=== PATIENT | female | born 1965 | race Caucasian/White ===

== ENCOUNTER 2017-03-09 13:24 | Outpatient (CLI) | payer OTHER | END 2017-03-09 13:25 | disposition home or self-care (01) | DX: Z13.1 Encounter for screening for diabetes mellitus (principal); Z13.9 Encounter for screening, unspecified; Z13.220 Encounter for screening for lipoid disorders; R59.0 Localized enlarged lymph nodes ==

== ENCOUNTER 2017-08-07 11:14 | Observation (INO) | payer OTHER ==
[~2017-08-07 11:14] MED LIST: ACETAMINOPHEN 1,000 MG/100 ML 100 ML IV ONE; DEXAMETHASONE 4 MG/ML VIAL IVP ONE; KETOROLAC 30 MG/ML VIAL IVP ONE; LIDOCAINE-MPF 2% 5 ML VIAL IM ONE; METOCLOPRAMIDE 10 MG/2 ML VIAL IVP ONE; MIDAZOLAM 2 MG/2 ML VIAL IVP ONE; ONDANSETRON 4 MG/2 ML VIAL IVP ONE; PROPOFOL 200 MG/20 ML VIAL IVP ONE; fentaNYL 100 MCG/2 ML VIAL IVP ONE
[2017-08-07] MEDS ORDERED: ONDANSETRON 4 MG/2 ML VIAL IVP STA (12:01)
[2017-08-07] MEDS ORDERED: HYDROmorphone 1 MG/ML CARPUJECT IVP STA ×2 (12:01→13:10)
[2017-08-07 12:04] LABS: BASOPHILS # (AUTO) 0.1 10^3/uL (0.0-0.1); BASOPHILS % (AUTO) 0.6 %; EOSINOPHILS # (AUTO) 0.1 10^3/uL (0.0-0.7); EOSINOPHILS % (AUTO) 0.5 %; LYMPHOCYTES % (AUTO) 10.3 %; MEAN CORPUSCULAR HEMOGLOBIN 29.8 pg (27.0-31.0); MEAN CORPUSCULAR HGB CONC 34.1 g/dL (32.0-36.0); MEAN CORPUSCULAR VOLUME 87.5 fL (81.0-99.0); MEAN PLATELET VOLUME 7.2 fL (7.9-10.8); MONOCYTES # (AUTO) 0.2 10^3/uL (0.0-1.0); MONOCYTES % (AUTO) 2.5 %; NEUTROPHILS # (AUTO) 8.3 10^3/uL (1.5-6.6); NEUTROPHILS % (AUTO) 86.1 %; RED BLOOD COUNT 4.68 10^6/uL (4.20-5.40); RED CELL DISTRIBUTION WIDTH 13.2 % (12.0-15.0); UNCORRECTED WHITE BLOOD COUNT 9.6 x10^3/uL; WHITE BLOOD COUNT 9.6 x10^3/uL (4.8-10.8)
[2017-08-07 12:05] LABS: BILIRUBIN,URINE NEGATIVE (NEGATIVE); PH,URINE 7.5 PH (5.0-7.5)
[2017-08-07 12:08] LABS: HCG UR QUAL NEGATIVE; UA w/ MICROSCOPIC CHARGE YES
[2017-08-07] MEDS ORDERED: SODIUM CHLORIDE FLUSH 0.9% 10 ML SYRINGE IVP ONE (12:09)
[2017-08-07] MEDS ORDERED: HYDROmorphone 1 MG/ML CARPUJECT ONE (12:09)
[2017-08-07] MEDS ORDERED: ONDANSETRON 4 MG/2 ML VIAL ONE (12:09)
[2017-08-07 12:16] LABS: UR CULTURE IF IND NOT INDICATED; WBC,URINE 0-3 /HPF (0-5)
[2017-08-07 12:18] LABS: ALBUMIN/GLOBULIN RATIO 1.2 (1.0-2.2); BILIRUBIN,TOTAL 0.5 mg/dL (0.2-1.0); CALCIUM 8.9 mg/dL (8.5-10.3); CREATININE 0.7 mg/dL (0.4-1.0); POTASSIUM 3.1 mmol/L (3.5-5.0)
[2017-08-07] MEDS ORDERED: HYDROmorphone 1 MG/ML SYRINGE ONE (13:16)
--- NOTE | 2017-08-07 13:20 | CT Preliminary Report ---
Exam: CT Abdomen/Pelvis W/O IMPRESSION: 1. Abnormal gallbladder consistent with cholecystitis and cholelithiasis. Correlate clinically. 2. Right renal lithiasis. No obstructive uropathy. 3. Normal appendix. [facility] SITE ID: [id number]
--- NOTE | 2017-08-07 13:33 | CT Report ---
EXAM: CT ABDOMEN AND PELVIS EXAM DATE: 08/07/2017 12:48 PM. CLINICAL HISTORY: Right-sided abdominal pain. Hematuria. COMPARISONS: None. TECHNIQUE: Routine helical CT imaging was performed through the abdomen and pelvis. IV contrast: None . Enteric contrast: No. Reconstructions: Coronal and sagittal. In accordance with CT protocol optimization, one or more of the following dose reduction techniques w ere utilized for this exam: automated exposure control, adjustment of mA and/or KV based on patient s ize, or use of iterative reconstructive technique. FINDINGS: Lung Bases: Prior right breast surgery. Mild cardiomegaly. Liver: Normal. No masses. Gallbladder/Bile Ducts: 12 mm gallbladder wall thickening. Overall caliber of the gallbladder itself is normal. 1.5 cm stone at the gallbladder neck. Additional stones in the rest of the gallbladder. No biliary duct dilatation. Several small densely calcified stones or limited calcification of the gall bladder wall at the fundus. Spleen: Normal. Pancreas: Normal. Adrenal Glands: Normal. Kidneys: Normal left kidney and left ureter. 3 mm stone in the inferior right renal calyx. No right hydronephrosis. Normal right ureter. Peritoneal Cavity/Bowel: Normal. No free fluid, free air or adenopathy. No masses or acute inflammato ry process. The appendix is well visualized and normal. Pelvic Organs: Normal. The bladder and visualized pelvic organs are within normal limits. Vasculature: No aneurysms or other significant abnormality. Bones: No significant abnormality. Other: None. IMPRESSION: 1. Abnormal gallbladder consistent with cholecystitis and cholelithiasis. Correlate clinically. 2. Right renal lithiasis. No obstructive uropathy. 3. Normal appendix. 4. Mild cardiomegaly. [facility] Referring Provider Line: [phone] SITE ID: [id number]
--- NOTE | 2017-08-07 14:05 | ED Physician Documentation ---
PD HPI ABD PAIN - Stated complaint Stated Complaint: ABD PX - Chief complaint Chief Complaint: Abd Pain - History obtained from History obtained from: Patient - History of Present Illness Timing - onset: How many hours ago (7) Timing - details: Still present Quality: Pain Location: Other (Right sided) Worsened by: Palpation Associated symptoms: Nausea, Vomiting. No: Fever Similar symptoms before: Has not had sx before - Additional information Additional information: The patient is a 51-year-old female who presents with right upper quadrant abdominal pain that started at 5:00 this morning, about 7 hours prior to arrival. It was sudden in onset, and has persisted since onset. She has had associated nausea with vomiting 4. She denies fever, diarrhea, cough, chest pain, or shortness of breath. She denies history of similar symptoms in the past. Her last menstrual period was 4 weeks ago and was normal. She was initially seen in her primary physician's office, and was sent here for further workup. Review of Systems Constitutional: denies: Fever Nose: denies: Congestion Throat: denies: Sore throat Cardiac: denies: Chest pain / pressure Respiratory: denies: Dyspnea, Cough GI: reports: Abdominal Pain, Nausea, Vomiting. denies: Diarrhea : reports: LMP (4 weeks ago.). denies: Dysuria Skin: denies: Rash Musculoskeletal: denies: Back pain Neurologic: denies: Syncope, Headache PD PAST MEDICAL HISTORY - Past Medical History Cardiovascular: None Respiratory: None Neuro: None Endocrine/Autoimmune: None GI: None - Past Surgical History Past Surgical History: No - Present Medications Home Medications: Ambulatory Orders Medication Instructions Recorded Confirmed Calcium Carbonate/Vitamin D3 1 each PO DAILY 10/18/13 08/07/17 [Calcium 500 + D Tablet] Tamoxifen Citrate 20 mg PO DAILY 09/05/14 08/07/17 - Allergies Allergies/Adverse Reactions: Allergies Allergy/AdvReac Type Severity Reaction Status Date / Time No Known Drug Allergies Allergy Verified 08/07/17 11:28 - Social History Does the pt smoke?: No PD ED PE NORMAL - Vitals Vital signs reviewed: Yes (Hypertensive) - General General: Alert and oriented X 3, Well developed/nourished - HEENT HEENT: Atraumatic, Pharynx benign - Neck Neck: Supple, no meningeal sign, No adenopathy, No JVD - Cardiac Cardiac: RRR, No murmur - Respiratory Respiratory: No respiratory distress, Clear bilaterally - Abdomen Abdomen: Normal bowel sounds, Soft, Other (Tender to palpation along the entire right abdomen, more in the right upper quadrant than elsewhere. No rebound tenderness.) - Back Back: No CVA TTP - Derm Derm: No rash - Extremities Extremities: No edema, No calf tenderness / cord - Neuro Neuro: Alert and oriented X 3, No motor deficit, Normal speech Results - Vitals Vitals: Vital Signs - 24 hr 08/07/17 08/07/17 11:22 14:20 Temperature 36.7 C Heart Rate 71 69 Respiratory 17 16 Rate Blood Pressure 254/111 H 188/95 H O2 Saturation 100 100 Oxygen O2 Source Room air - Labs Labs: Laboratory Tests 08/07/17 08/07/17 08/07/17 11:50 11:50 11:50 WBC 9.6 RBC 4.68 Hgb 14.0 Hct 41.0 MCV 87.5 MCH 29.8 MCHC 34.1 RDW 13.2 Plt Count 261 MPV 7.2 L Neut # 8.3 H Lymph # 1.0 L [place] # 0.2 Eos # 0.1 Baso # 0.1 Absolute Nucleated RBC 0.00 Nucleated RBC % 0.0 Sodium 138 Potassium 3.1 L Chloride 102 Carbon Dioxide 27 Anion Gap 9.0 BUN 8 Creatinine 0.7 Estimated GFR (MDRD) 88 L Glucose 113 H Calcium 8.9 Total Bilirubin 0.5 AST 24 ALT 20 Alkaline Phosphatase 57 Total Protein 8.0 Albumin 4.4 Globulin 3.6 Albumin/Globulin Ratio 1.2 Lipase 40 Urine Color YELLOW Urine Clarity CLEAR Urine pH 7.5 Ur Specific [place] 1.020 Urine Protein 30 H Urine Glucose (UA) NEGATIVE Urine Ketones NEGATIVE Urine Occult Blood MODERATE H Urine Nitrite NEGATIVE Urine Bilirubin NEGATIVE Urine Urobilinogen 0.2 (NORMAL) Ur Leukocyte Esterase NEGATIVE Urine RBC 11-25 H Urine WBC 0-3 Ur Squamous Epith Cells FEW Squamous Urine Bacteria Rare Ur Microscopic Review INDICATED Urine Culture Comments NOT INDICATED Urine HCG, Qual 08/07/17 11:50 WBC RBC Hgb Hct MCV MCH MCHC RDW Plt Count MPV Neut # Lymph # [place] # Eos # Baso # Absolute Nucleated RBC Nucleated RBC % Sodium Potassium Chloride Carbon Dioxide Anion Gap BUN Creatinine Estimated GFR (MDRD) Glucose Calcium Total Bilirubin AST ALT Alkaline Phosphatase Total Protein Albumin Globulin Albumin/Globulin Ratio Lipase Urine Color Urine Clarity Urine pH Ur Specific [place] 1.020 Urine Protein Urine Glucose (UA) Urine Ketones Urine Occult Blood Urine Nitrite Urine Bilirubin Urine Urobilinogen Ur Leukocyte Esterase Urine RBC Urine WBC Ur Squamous Epith Cells Urine Bacteria Ur Microscopic Review Urine Culture Comments Urine HCG, Qual NEGATIVE - Rads (name of study) CT abd/pelvis w/o Radiology: Prelim report reviewed, EMP read contemporaneously, See rad report ( 1. Abnormal gallbladder, consistent with cholecystitis and cholelithiasis. Correlate clinically. 2. Right renal lithiasis. No obstructive uropathy. 3. Normal appendix.) PD MEDICAL DECISION MAKING - ED course Complexity details: reviewed results, re-evaluated patient, considered differential, d/w patient, d/w personnel consultant ED course: The patient's presentation is most consistent with acute cholecystitis, with cholelithiasis. Her white blood cell count is normal, as are her liver enzymes. Her potassium is slightly hypokalemic at 3.1. Treatment in the emergency department included administration of normal saline IV, Dilaudid 1 mg IV, Zofran 4 mg IV, and potassium supplement 20 mEq IV. I discussed her condition with Dr. Hernandez who evaluated her in the emergency department and admitted her for operative intervention. Departure - Departure Disposition: ED Place in Observation Clinical Impression: Cholecystitis, Hypokalemia Condition: Stable Discharge Date/Time: 08/07/17 16:06
[2017-08-07] MEDS ORDERED: POTASSIUM CHLORIDE 20 MEQ TABLET PO STA (14:06)
[2017-08-07] MEDS ORDERED: POTASSIUM CHLOR 20 MEQ/100 ML 20 MEQ/100 ML BAG IV ONE (14:21)
[2017-08-07] MEDS ORDERED: SODIUM CHLORIDE 0.9% 1,000 ML IV ONE (14:21)
[2017-08-07] MEDS ORDERED: POTASSIUM CHLOR 10 MEQ/100 ML 10 MEQ/100 ML BAG IV ONE (14:45)
[2017-08-07] MEDS ORDERED: SODIUM CHLORIDE FLUSH 0.9% 10 ML SYRINGE IVP PRN (14:47)
[2017-08-07] MEDS ORDERED: HYDROmorphone 1 MG/ML AMP IVP PRN (14:51)
[2017-08-07] MEDS: ONDANSETRON 4 MG/2 ML VIAL IVP PRN ×2 (16:07→21:16)
[2017-08-07] MEDS: cefOXitin 1 GM in SODIUM CHLORIDE 0.9% MINIBAG 100 ML IV SCH ×2 (16:09→21:08)
[2017-08-07] MEDS: HYDROmorphone 1 MG/ML AMP IVP PRN ×3 (16:09→22:25)
[2017-08-07] MEDS: NS W/20 MEQ KCL 1,000 ML IV SCH (16:10)
[2017-08-07] MEDS: SODIUM CHLORIDE FLUSH 0.9% 10 ML SYRINGE IVP SCH (21:26)
[2017-08-07] MEDS: ENALAPRILAT 1.25 MG/ML VIAL IVP PRN (23:52)
[2017-08-08] MEDS: HYDROmorphone 1 MG/ML AMP IVP PRN ×2 (00:45→04:08)
[2017-08-08] MEDS: NS W/20 MEQ KCL 1,000 ML IV SCH ×2 (03:00→11:42)
[2017-08-08] MEDS: cefOXitin 1 GM in SODIUM CHLORIDE 0.9% MINIBAG 100 ML IV SCH ×4 (04:10→21:30)
[2017-08-08] MEDS: SODIUM CHLORIDE FLUSH 0.9% 10 ML SYRINGE IVP SCH ×3 (04:15→20:20)
[2017-08-08] MEDS ORDERED: BUPIVACAINE 0.5%-EPI 1:200000 PF 30 ML VIAL SUBQ ONE (08:21)
[2017-08-08] MEDS ORDERED: LACTATED RINGERS 1,000 ML IV ONE ×2 (08:23→10:45)
[2017-08-08] MEDS ORDERED: IOTHALAMATE MEGLUMINE 50 ML VIAL INTRADUCT ONE (09:24)
--- NOTE | 2017-08-08 09:50 | XRAY Preliminary Report ---
Exam: [place] OR Cholangiogram IMPRESSION: A catheter has been placed into the cystic duct remnant following cholecystectomy. Cholan giography shows opacification of the bile ducts. Visualized ducts show no filling defects. Spill of c ontrast into the duodenum documented. [facility] SITE ID: [id number]
--- NOTE | 2017-08-08 09:52 | XRAY Report ---
EXAM: INTRAOPERATIVE CHOLANGIOGRAM EXAM DATE: 08/08/2017 09:25 AM. CLINICAL HISTORY: LAP BENNY. COMPARISONS: Correlation made with abdomen and pelvis CT of 08/07/2017. TECHNIQUE: Dr. Ruddy Hernandez performed the procedure. Please see the operative notes for details. Fluoroscopy Time: 19 seconds. Number of Images: 2. FINDINGS/IMPRESSION: A catheter has been placed into the cystic duct remnant following cholecystectom y. Cholangiography shows opacification of the bile ducts. Visualized ducts show no filling defects. S pill of contrast into the duodenum documented. [facility] Referring Provider Line: [phone] SITE ID: [id number]
[2017-08-08] MEDS ORDERED: HYDROcod/ACETAM 5/325 MG TABLET PO PRN (10:08)
[2017-08-08] MEDS ORDERED: MORPHINE 2 MG/ML SYRINGE IVP PRN ×3 (10:08→10:09)
--- NOTE | 2017-08-08 10:13 | HISTORY & PHYSICAL EXAMINATION ---
DATE OF ADMISSION: 08/07/2017 REASON FOR ADMISSION: Acute abdominal pain. HISTORY OF PRESENT ILLNESS: The patient is a 51-year-old female who had sudden right upper quadrant a bdominal pain starting earlier on the day of admission. The pain persisted and did not resolve. Becau se of this, she came to the emergency room. She has had nausea with emesis. She denies any diarrhea, constipation, peptic ulcer disease, jaundice, or acholic stools. PAST SURGICAL HISTORY: Breast cancer, undergoing a mastectomy. MEDICATIONS: Tamoxifen. ALLERGIES TO MEDICATIONS: NONE. FAMILY HISTORY: Noncontributory. SOCIAL HISTORY: The patient is single. HABITS: The patient denies any significant smoking, alcohol, or drug use. REVIEW OF SYSTEMS: A complete review of systems was obtained. Pertinent positives are CONSTITUTIONAL: Not feeling well. GASTROINTESTINAL: Abdominal pain, nausea, and vomiting. A 12-point review of systems obtained with pertinent positives discussed and all others being negativ e. PHYSICAL EXAMINATION VITAL SIGNS: Blood pressure 171/84, pulse 67, temperature is 36.7. GENERAL: The patient is lying in bed. She is having complaints of abdominal pain in the right upper q uadrant. HEENT: Eyes nonicteric. NECK: No lymphadenopathy. HEART: Regular. LUNGS: Clear. BACK: Nontender. ABDOMEN: Soft, tender in the right upper quadrant. No hernias. EXTREMITIES: No edema or cyanosis. NEUROLOGICAL: The patient appears to be neurologically intact without any deficits. PSYCHOLOGICAL: The patient is coherent, cooperative, and appears to answer questions fully. DIAGNOSTIC DATA: Liver function tests normal, sodium 138, potassium 3.1, BUN 8, creatinine 0.7. White blood cell count 9.6, hemoglobin 14. CT scan of the abdomen and pelvis shows a gallbladder with mult iple gallstones and thickened wall consistent with acute cholecystitis. ASSESSMENT 1. Acute right upper quadrant abdominal pain secondary to acute cholecystitis. I have recommended she undergo a laparoscopic cholecystectomy, possible laparotomy. The risks and possible complications of the procedure have been explained to her. She accepts the risks and wishes to proceed. No guarantees given or implied. 2. History of breast cancer, on tamoxifen. PLAN 1. The patient will be admitted to the hospital. 2. N.p.o. 3. IV fluids. 4. IV antibiotics. 5. Laparoscopic cholecystectomy, possible laparotomy. JOB #: [id number] EXT JOB #:[id number]
[2017-08-08] MEDS: HYDROcod/ACETAM 5/325 MG TABLET PO PRN ×3 (13:29→23:51)
[2017-08-09] MEDS: NS W/20 MEQ KCL 1,000 ML IV SCH (01:12)
[2017-08-09] MEDS: cefOXitin 1 GM in SODIUM CHLORIDE 0.9% MINIBAG 100 ML IV SCH ×2 (04:04→08:35)
[2017-08-09] MEDS: HYDROcod/ACETAM 5/325 MG TABLET PO PRN ×2 (05:25→09:12)
[2017-08-09] MEDS: SODIUM CHLORIDE FLUSH 0.9% 10 ML SYRINGE IVP SCH (07:04)
[2017-08-09] MEDS: ENALAPRILAT 1.25 MG/ML VIAL IVP PRN (08:05)
[2017-08-09 08:24] VITALS: BP 160/82
--- NOTE | 2017-08-09 10:03 | PROVIDER PROGRESS NOTE ---
Subjective - General Admit Date: 08/07/17 - Review of Systems Gastrointestinal: positive: Abdominal pain (at incision sites. No c/o pain that was present before surgery.) Objective - Patient Data Vital Signs: Vital Signs x48h Temp Pulse Pulse Resp BP BP Pulse Ox 08/09/17 08:24 68 160/82 H 08/09/17 08:12 66 162/83 H 08/09/17 07:36 36.9 C 61 16 167/87 H 99 08/09/17 05:00 36.7 C 63 16 154/83 H 98 Weight: Weight 08/07/17 08/08/17 08/09/17 23:59 23:59 23:59 Weight (kg) 85.5 kg Intake & Output: Intake and Output Totals x24h 08/07/17 08/08/17 08/09/17 23:59 23:59 23:59 Intake Total 1300 2890 2384.75 Output Total 350 600 Balance 1300 2540 1784.75 - Lab Results Lab Results: 08/07/17 11:50 08/07/17 11:50 - Current Medications Current Medications: Current Medications Generic Name Dose Route Start Last Admin Trade Name Freq PRN Reason Stop Dose Admin Acetaminophen/Hydrocodone Bitart 2 tab 08/08/17 10:08 08/09/17 09:12 [place] 5/325 PO 2 tab Q4HR PRN Administration PAIN Enalaprilat 1.25 mg 08/07/17 22:05 08/09/17 08:05 Vasotec Inj IVP 1.25 mg Q6HR PRN Administration Blood Pressure Cefoxitin Sodium 1 gm/ Sodium 100 mls @ 200 mls/hr 08/07/17 16:00 08/09/17 08 :35 Chloride IV Not Given Q6H RONALDO Potassium Chloride/Sodium Chloride 1,000 mls @ 75 mls/hr 08/08/17 10:09 08/09 07:05 Normal Saline 0.9% W/20 Meq Kcl IV 75 mls/hr .[id number] RONALDO Infusion Ondansetron HCl 4 mg 08/07/17 14:50 08/07/17 21:16 Zofran Inj IVP 4 mg Q6H PRN Administration Nausea / Vomiting Sodium Chloride 10 ml 08/07/17 22:00 08/09/17 07:04 Normal Saline Flush 0.9% IVP Not Given Q8HR RONALDO Sodium Chloride 10 ml 08/07/17 14:47 08/09/17 08:06 Normal Saline Flush 0.9% IVP 10 ml PRN PRN Administration NEEDED PER PROVIDER ORDERS - Physical Exam Abdomen: positive: Other (incisions clean without wound healing problems.) Impression/Plan - Problem List Problem List: s/p laparoscopic cholecystectomy for acute cholecystitis pod#1. Doing well. Tolerating liquids. Advance diet. d/c home.
--- NOTE | 2017-08-09 10:05 | Discharge Plan ---
Discharge Plan Disposition: 01 Home, Self Care Condition: Good Prescriptions: HYDROcod/ACETAM 5/325 [[place] 5/325] 2 tab PO Q4HR PRN #40 tablet PRN Reason: Pain Diet: Regular Activity Restrictions: no lifting over 15 lbs Shower Restrictions: No Driving Restrictions: Yes (wait at least 3 days and not while on pain medications) Weight Bearing: Full Weight No Smoking: If you smoke, Please STOP! Call for help. Follow-up with: Pilar Winslow PA [Primary Care Provider] - 2 Weeks Ruddy Hernandez MD [Provider Admit Priv/Credential] - 2 Weeks
--- NOTE | 2017-08-09 12:40 | OPERATIVE REPORT ---
DATE OF SURGERY: 08/08/2017 00:00:00 PREOPERATIVE DIAGNOSIS: Acute cholecystitis. POSTOPERATIVE DIAGNOSIS: Acute cholecystitis. NAME OF PROCEDURE: Laparoscopic cholecystectomy with intraoperative cholangiogram. SURGEON: Ruddy Hernandez MD ANESTHESIA: General. INDICATIONS FOR SURGERY: The patient is a 51-year-old female who presents with acute right upper quad rant abdominal pain. She had a CT scan of the abdomen and pelvis, which revealed a gallbladder with t hickened gallbladder wall and gallstones. She clinically also had cholecystitis. She was then admitte d to the hospital to undergo IV hydration, IV antibiotics and then laparoscopic cholecystectomy. FINDINGS AT PROCEDURE: The patient had acutely inflamed gallbladder containing numerous gallstones. S he had a normal intraoperative cholangiogram without any filling defects being present. PROCEDURE: After informed consent was obtained, the patient taken to the operating room and placed in supine position. General endotracheal anesthesia was administered. The patient's abdomen was then pr epped and draped in usual sterile fashion. Prior to making abdominal incisions, the skin was injected with local anesthesia. An infraumbilical incision was made in the skin using a scalpel. A 5 mm Optiv iew trocar was then inserted through this incision, through the fascia and into the abdominal cavity under direct vision. The abdomen was then insufflated. Three 5 mm ports were then placed in the right upper quadrant, and the 5 mm port switched to a 12 mm port under direct vision. The patient's gallbl adder was acutely inflamed and distended. A needle was then inserted in the gallbladder, draining it of its fluid contents. The gallbladder fundus was then grasped and lifted anteriorly and superiorly, exposing the triangle of [place]. The peritoneum was then incised using cautery at this point. Dissecti on proceeded down to the cystic duct, which was identified. Cystic duct gallbladder junction was visu alized. The common bile duct was also visualized with the cystic duct being short and wide. A Shepard c lamp was then placed across the Mehran pouch, and a cholangiogram was then performed. This showed n ormal biliary anatomy without any filling defects being present. The clamp was then removed, and clip s were then placed proximally and distally along the cystic duct with it then being divided. The cyst ic artery was identified, clipped proximally and distally and then being divided. Gallbladder was the n dissected off the gallbladder bed using electrocautery, placed in an Endobag and removed through th e umbilical port. Right upper quadrant was thoroughly irrigated until the return fluid was clear. The ports were then removed, and no bleeding was noted at the port sites with the abdomen then being conchita ufflated. The umbilical fascial defect was closed using #0 Vicryl sutures. The skin incisions were cl osed using 4-0 Monocryl subcuticular stitch. Dermabond was then applied on the incision sites. The pa tient was then awakened, extubated and taken from the operating room in stable condition. ESTIMATED BLOOD LOSS: 10 mL. COMPLICATIONS: None. CONDITION OF THE PATIENT AT END OF PROCEDURE: Stable. SPECIMENS: Gallbladder and gallstones. DRAINS OR PACKS: None. CLASSIFICATION OF WOUND: Clean contaminated. JOB #: [id number] EXT JOB #:[id number]
--- NOTE | 2017-08-09 13:04 | DISCHARGE SUMMARY ---
DATE OF ADMISSION: 08/07/2017 DATE OF DISCHARGE: 08/09/2017 REASON FOR ADMISSION: Acute abdominal pain. HISTORY OF PRESENT ILLNESS: The patient is a 51-year-old female who had sudden right upper quadrant a bdominal pain starting on the day of admission. Because the pain did not resolve, [facility]. She had nausea and vomiting but no diarrhea or constipation. She had an ultrasound of the abdomen, which revealed a distended gallbladder with stones and thickened gallbladd er wall consistent with acute cholecystitis. PRINCIPAL DIAGNOSIS: Acute cholecystitis. OTHER MEDICAL PROBLEMS: History of breast cancer. PROCEDURES: The patient underwent a laparoscopic cholecystectomy with intraoperative cholangiogram on 08/08/2017. HOSPITAL COURSE: The patient was admitted to the hospital and was IV hydrated along with IV antibioti cs being started. Once she was stable, she then underwent the above procedure. She tolerated it well and was transferred to the floor in stable condition. She was started on IV pain medications and swit ched to oral, which she was tolerating at discharge. She was started on a liquid diet, and this was a dvanced to a regular being tolerated at discharge. Her abdominal incisions remained clean without any evidence of infection. She was then discharged home on postoperative day 1 in stable condition. DISCHARGE PROGRAM: The patient will be discharged home. Followup in the surgical clinic in 2 weeks. R egular diet. Ambulate with no lifting over 15 pounds for 2 weeks. She may shower. She is to resume he r prehospitalization medications. In addition, [place] 5/325 one to 2 p.o. q.4-6 hours p.r.n. pain. JOB #: [id number] EXT JOB #:[id number]
== END 2017-08-09 11:24 | disposition home or self-care (01) ==
LOC: ED 11:14 → OBS 14:47
PROVIDERS: ADMIT Surgery; ATTEND Surgery
PROC: 0FT44ZZ Resection of Gallbladder, Percutaneous Endoscopic Approach (ICD-10-PCS; principal; 2017-08-08 08:00)
DX: K80.00 Calculus of gallbladder with acute cholecystitis without obstruction (principal); E87.6 Hypokalemia; C50.919 Malignant neoplasm of unspecified site of unspecified female breast; E66.9 Obesity, unspecified; Z79.810 Long term (current) use of selective estrogen receptor modulators (SERMs); Z87.891 Personal history of nicotine dependence; Z68.32 Body mass index [BMI] 32.0-32.9, adult
CPT/HCPCS: 36415; 47563; 74176; 74300; 80053; 81001; 81025; 83690; 85025; 88304; 96361; 96365; 96366; 96375; 96376; 99283; 99285; A9270; J0131; J1170; J7120; Q9961; 81003; 87086; 96374; 99284

== ENCOUNTER 2018-05-18 18:47 | Outpatient (CLI) | payer OTHER ==
--- NOTE | 2018-05-19 11:43 | Ultrasound Report ---
Procedure Date: 05/18/2018 Accession Number: [id number] / [id number] Procedure: US - Duplex Ext Veins Bilateral CPT Code: FULL RESULT: EXAM: BILATERAL LOWER EXTREMITY VENOUS ULTRASOUND EXAM DATE: 05/18/2018 08:35 PM. CLINICAL HISTORY: PAIN, VARICOSE VEINS. COMPARISON: None. TECHNIQUE: Real-time sonographic vascular imaging was performed by the facility sales and admin through the lower extremities utilizing both color-flow and Doppler spectral analysis. Multiple sales development representative static images were saved for review. FINDINGS: Right: Common Femoral Vein (CFV): Normal. CFV-GSV Junction: Normal. Profunda Femoral Vein (PFV): Normal. Femoral Vein (FV) Prox: Normal. Femoral Vein (FV) Mid: Limited visualization but no DVT seen. Femoral Vein (FV) Dist: Limited visualization but no DVT seen. Popliteal Vein: Normal. Posterior Tibial Veins: Limited visualization but no DVT seen. Peroneal Veins: Limited visualization but no DVT seen. Left: Common Femoral Vein (CFV): Normal. CFV-GSV Junction: Normal. Profunda Femoral Vein (PFV): Normal. Femoral Vein (FV) Prox: Normal. Femoral Vein (FV) Mid: Limited visualization but no DVT seen. Femoral Vein (FV) Dist: Limited visualization but no DVT seen. Popliteal Vein: Normal. Posterior Tibial Veins: Limited visualization but no DVT seen. Peroneal Veins: Limited visualization but no DVT seen. Other: Limited secondary to body habitus. At the left calf there is a superficial thrombosis and varicose vein posteriorly and medially. IMPRESSION: Limited because of patient body habitus. No DVT identified at either lower extremity. Positive for superficial venous thrombosis in a varicose vein of the left calf. [facility]
== END 2018-05-18 18:48 | disposition home or self-care (01) ==
LOC: DI 18:47
PROVIDERS: ATTEND Physician Assistant
DX: I83.819 Varicose veins of unspecified lower extremity with pain (principal)
CPT/HCPCS: 93970

== ENCOUNTER 2019-09-20 16:04 | Outpatient (CLI) | payer OTHER ==
--- NOTE | 2019-09-21 15:59 | XRAY Report ---
Reason: CERVICALGIA Procedure Date: 09/20/2019 Accession Number: [id number] / [id number] Procedure: XRN - Cervical Spine 2 View CPT Code: Final Report FULL RESULT: EXAM: CERVICAL SPINE RADIOGRAPHY EXAM DATE: 09/20/2019 04:26 PM HISTORY: CERVICALGIA. COMPARISON: XR CERVICAL SPINE 2 OR 3 VIEWS 07/01/2007 7:47 AM TECHNIQUE: AP, lateral and open mouth odontoid three view exam plus swimmer's view FINDINGS: The lateral view has suboptimal projection angle. Slight convex right curvature. No evidence of fracture or abnormality or subluxation. There appears to be multilevel degenerative disk disease with disk space narrowing and osteophyte formation most evident at C3-C4 and C5-C6. Degenerative changes at C3-C4. To be new. Spondylosis of C5-C6 is significantly worsened. Prevertebral soft tissues are unremarkable. IMPRESSION: C3-C4 and C5-C6 worsening spondylosis. Limited as noted. [facility]
== END 2019-09-20 16:05 | disposition home or self-care (01) ==
LOC: DI.N 16:04
PROVIDERS: ATTEND Physician Assistant Medical
DX: M50.31 Other cervical disc degeneration, high cervical region (principal); M47.812 Spondylosis without myelopathy or radiculopathy, cervical region
CPT/HCPCS: 72040

== ENCOUNTER 2020-09-17 11:37 | Outpatient (CLI) | payer OTHER ==
[2020-09-17 17:40] LABS: BASOPHILS # (AUTO) 0.1 10^3/uL (0.0-0.1); BASOPHILS % (AUTO) 0.9 %; EOSINOPHILS # (AUTO) 0.3 10^3/uL (0.0-0.7); EOSINOPHILS % (AUTO) 5.2 %; HGB - HEMOGLOBIN 13.2 g/dL (12.0-16.0); LYMPHOCYTES # (AUTO) 1.9 10^3/uL (1.5-3.5); LYMPHOCYTES % (AUTO) 34.8 %; MEAN CORPUSCULAR HEMOGLOBIN 29.9 pg (27.0-31.0); MEAN CORPUSCULAR HGB CONC 32.8 g/dL (32.0-36.0); MEAN CORPUSCULAR VOLUME 91.2 fL (81.0-99.0); MEAN PLATELET VOLUME 9.5 fL (7.9-10.8); MONOCYTES # (AUTO) 0.3 10^3/uL (0.0-1.0); NEUTROPHILS # (AUTO) 2.8 10^3/uL (1.5-6.6); NEUTROPHILS % (AUTO) 52.7 %; PLT - PLATELET COUNT 267 10^3/uL (130-450); RED BLOOD COUNT 4.41 10^6/uL (4.20-5.40); RED CELL DISTRIBUTION WIDTH 12.8 % (12.0-15.0); WHITE BLOOD COUNT 5.4 x10^3/uL (4.8-10.8)
[2020-09-17 18:13] LABS: ALBUMIN 3.9 g/dL (3.2-5.5); ALBUMIN/GLOBULIN RATIO 1.2 (1.0-2.2); ALKALINE PHOSPHATASE 52 IU/L (42-121); ALT ALANINE AMINOTRANSFERASE 21 IU/L (10-60); AST ASPARTATE AMINOTRANSFERASE 26 IU/L (10-42); BILIRUBIN,TOTAL 0.6 mg/dL (0.2-1.0); BUN - BLOOD UREA NITROGEN 13 mg/dL (6-20); CALCIUM 9.3 mg/dL (8.5-10.3); CARBON DIOXIDE - CO2 27 mmol/L (21-32); CHLORIDE 104 mmol/L (101-111); CHOL/HDL RATIO 4.8 (<4.4); CHOLESTEROL 209 mg/dL; CREATININE 0.7 mg/dL (0.4-1.0); GLUCOSE 82 mg/dL (70-100); HDL CHOLESTEROL 44 mg/dL; LDL CHOLESTEROL,CALCULATED 109 mg/dL; LDL/HDL RATIO 2.5 (<4.4); SODIUM 141 mmol/L (135-145); TOTAL PROTEIN 7.2 g/dL (6.7-8.2); VLDL CHOLESTEROL 56 mg/dL
[2020-09-17 18:17] LABS: THYROID STIMULATING HORMONE 2.59 uIU/mL (0.34-5.60)
[2020-09-17 18:19] LABS: FREE T3 3.65 pg/mL (2.5-3.9); FREE T4 (FREE THYROXINE) 1.08 ng/dL (0.58-1.64)
== END 2020-09-17 23:59 | disposition home or self-care (01) ==
LOC: LAB.WCP 11:37
PROVIDERS: ATTEND Family Medicine
DX: M54.5 Low back pain (principal); G89.29 Other chronic pain; I10 Essential (primary) hypertension; K59.00 Constipation, unspecified; K81.0 Acute cholecystitis
CPT/HCPCS: 36415; 80053; 80061; 83721; 84439; 84443; 84481; 85025; 86376; 86800

== ENCOUNTER 2023-07-05 15:59 | Outpatient (CLI) | payer OTHER ==
--- NOTE | 2023-07-05 17:46 | Ultrasound Report ---
PROCEDURE: Abdomen Complete INDICATIONS: L UPPER QUAD PAIN, RIGHT HIP PAIN TECHNIQUE: Real-time scanning was performed of the abdominal and retroperitoneal organs, with image documentatio n. COMPARISON: Correlation is made with CT, 08/07/2017. FINDINGS: Liver: The liver demonstrates normal size. The liver demonstrates moderately increased echogenicit y, which limits ultrasound sensitivity for detection of masses. Within the left liver and a 2 cm simp le cyst is seen. Gallbladder: Removed. Biliary ducts: Intrahepatic bile ducts are non-dilated. Extrahepatic bile duct caliber measures 7 m m. Normal is 6-7 mm or less in diameter, or 10 mm or less post-cholecystectomy. Pancreas: Visualized portions of the pancreas are sonographically normal. Spleen: Spleen is normal in size and homogeneous in echotexture. Kidneys: Kidneys are normal in size and echotexture. Right kidney measures 10.1 cm long; left kidne y measures 11.6 cm long. No hydronephrosis. There is an echogenic focus along the inferior aspect of the left kidney that measures 6 mm. No definite shadowing can be seen. No solid masses. No complex r enal cystic lesions which require follow-up. Aorta: Visualized aorta is normal in caliber at less than 3 cm. Iliacs: A gastric tube is seen, with the tip not visible within the [id number] of this image, alt nohemi clearly below the diaphragm. IVC: Intrahepatic inferior vena cava is patent. Miscellaneous: No free abdominal fluid. Attempts were made at scanning the site of left upper quadrant pain. However, this is seen deep to th e ribs and cannot be evaluated by ultrasound. IMPRESSION: No imaging explanation is found for the patient's presenting symptoms. The area of left or quadrant p ain cannot be evaluated by ultrasound, as it is seen deep to the ribs. If clinically appropriate, please consider follow-up chest CT. There is a potential 6 mm nonobstructing left-sided kidney stone. However, no shadowing can be seen i n this may simply be artifactual. Fatty liver infiltration seen. Additional findings: Liver cyst Reviewed by: Otis Wolf MD on 07/05/2023 4:45 PM AKDT Approved by: Otis Wolf MD on 07/05/2023 4:45 PM AKDT Station ID: [id number]
== END 2023-07-05 16:00 | disposition home or self-care (01) ==
LOC: DI 15:59
PROVIDERS: ATTEND Internal Medicine
DX: R10.12 Left upper quadrant pain (principal); K76.0 Fatty (change of) liver, not elsewhere classified; K76.89 Other specified diseases of liver

== ENCOUNTER 2024-05-18 14:35 | Outpatient (CLI) | payer MEDICAID ==
--- NOTE | 2024-05-18 15:33 | XRAY Report ---
PROCEDURE: Chest 2V INDICATIONS: COPD TECHNIQUE: 2 views of the chest were acquired. COMPARISON: None. FINDINGS: Surgical changes and devices: Surgical clips project over the left axilla, bilateral breasts. Surgic al clips project over right upper quadrant. Lungs and pleura: No pleural effusions or pneumothorax. Lungs are clear. A 1 cm calcific density pr ojects over the right chest. Mediastinum: Mediastinal contours appear normal. Heart size is unremarkable. Bones and chest wall: Mild scoliosis IMPRESSION: 1. No acute cardiopulmonary process. 2. A 1 cm calcific density projecting over the left chest of unknown significance. Extensive postop c hanges of the chest, left axilla. Reviewed by: Gil Sethi MD on 05/18/2024 3:32 PM PDT Approved by: Gil Sethi MD on 05/18/2024 3:32 PM PDT Station ID: [id number]
== END 2024-05-18 14:36 | disposition home or self-care (01) ==
LOC: DI.N 14:35
PROVIDERS: ATTEND Internal Medicine
DX: J44.9 Chronic obstructive pulmonary disease, unspecified (principal); R91.8 Other nonspecific abnormal finding of lung field